=== PATIENT | male | born 1940 | race Caucasian/White ===

== ENCOUNTER 2017-02-16 08:25 | Outpatient (CLI) | payer OTHER ==
--- NOTE | 2017-02-16 10:08 | DIAGNOSTIC IMAGING REPORT ---
PROCEDURE: MR CERVICAL SPINE W/O CONT INDICATION: RADICULOPATHY CERVICAL SPINE TECHNIQUE: Noncontrast T1, T2, and STIR sagittal images. T2 and gradient axial images. COMPARISON: Cervical spine MRI fourth . FINDINGS: 2 mm C7-C1 anterolisthesis. Severe C5-6 and C6-7 disc vertebral degenerative changes. There is no fracture or suspicious osseous lesion. Mild C4-5 spinal stenosis secondary to a small disc bulge and thickening of the ligament flava. Normal cord signal. C2-3: Normal appearance. C3-4: Small disc bulge and facet arthropathy with mild right foraminal stenosis. Mild spinal stenosis. C4-5: Small disc bulge with thickening of the ligament flava resulting in mild spinal stenosis. There is mild right and moderate left foraminal stenosis. C5-6: Moderate broad-based disc bulge/spur complex with facet arthropathy there is moderate right and severe left foraminal stenosis. There is mild spinal stenosis. C6-7: Mild broad-based disc bulge/spur complex with facet arthropathy. There is moderate right and mild left foraminal stenosis. No spinal stenosis. C7-T1: Moderate broad-based disc bulge with mild bilateral foraminal stenosis. IMPRESSION: 1. Severe C5-6 and C6-7 degenerative changes with multilevel disc bulging and 2 mm C7-C1 anterolisthesis 2. Mild spinal stenosis from C3-4 to C5-6, most prominent at C4-5 3. Mild right C3-4, mild right and moderate left C4-5, moderate right and severe left C5-6, moderate right and mild left C6-7 and mild bilateral C7-T1 foraminal stenosis
== END 2017-02-16 23:00 | disposition home or self-care (01) ==
LOC: MRI SRH 08:25
DX: M50.322 Other cervical disc degeneration at C5-C6 level (principal); M50.323 Other cervical disc degeneration at C6-C7 level; M48.02 Spinal stenosis, cervical region